=== PATIENT | male | born 1975 | race Caucasian/White ===

== ENCOUNTER 2016-08-13 10:05 | Outpatient (CLI) | payer OTHER ==
[2016-08-13 10:42] LABS: ALT (SGPT) 44 U/L (0-55); AST (SGOT) 32 U/L (5-34); Albumin 4.5 g/dL (3.5-5.0); Alkaline Phosphatase 45 U/L (40-150); Amylase 72 U/L (25-125); Anion Gap 14 mmol/L (10-20); BUN (Urea Nitrogen) 16 mg/dL (8.9-20.6); Bilirubin, Total 0.6 mg/dL (0.2-1.2); Calc. Creatinine Clearance 0 mL/min (70-130); Calcium 9.4 mg/dL (7.8-10.44); Carbon Dioxide 26 mmol/L (22-29); Cardiac Risk 8.5 (Less than 4.5); Chloride 102 mmol/L (98-107); Cholesterol 255 mg/dL (< 200 Desired); Estimated GFR-MDRD 63; Globulin 2.4 g/dL (2.4-3.5); Glucose 93 mg/dL (70-105); HDL Cholesterol 30 mg/dL (>60 Neg Risk); LDL Cholesterol, Calculated 161 mg/dL; Lipase 46 U/L (8-78); Potassium 4.8 mmol/L (3.5-5.1); Protein, Total 6.9 g/dL (6.0-8.3); Sodium 137 mmol/L (136-145); Triglycerides 319 mg/dL (Less than 150)
[2016-08-13 10:48] LABS: #Basophils 0.1 thou/uL (0.0-0.2); #Eosinphils 0.1 thou/uL (0.0-0.7); #Lymphocytes 1.8 thou/uL (1.20-3.40); #Monocytes 0.9 thou/uL (0.11-0.59); #Neutrophils 5.3 thou/uL (1.40-6.50); %Eosinophils 1.5 % (0.0-10.0); %Lymphocytes 22.1 % (21.0-51.0); %Monocytes 10.5 % (0.0-10.0); Mean Corpuscular HGB CONC 32.8 g/dL (32.0-36.0); Mean Corpuscular Volume 94.6 fl (80.0-94.0); Mean Platelet Volume 9.2 fL (7.4-10.4); Platelet Count 197 thou/uL (130-400); Red Blood Cell (RBC) Count 5.47 mill/uL (4.70-6.10); White Blood Cell (WBC) Count 8.2 thou/uL (4.8-10.8)
== END 2016-08-13 10:06 | disposition home or self-care (01) ==
LOC: MADLABBHPM 10:05
PROVIDERS: ATTEND Family Medicine
DX: E78.5 Hyperlipidemia, unspecified (principal); I10 Essential (primary) hypertension
CPT/HCPCS: 36415; 80053; 80061; 82150; 83690; 84443; 85025

== ENCOUNTER 2019-11-27 10:12 | Outpatient (CLI) | payer OTHER ==
--- NOTE | 2019-11-27 11:17 | ULT ---
EXAM: US Thyroid STANDARD PROVIDED CLINICAL HISTORY: Enlarged thyroid gland. Reported left thyroid mass on prior imaging study. COMPARISON: None FINDINGS: The right lobe of thyroid gland measures 4.4 cm x 2.3 cm x 2.1 cm with the left lobe measuring 4.9 cm x 2.6 cm x 2.6 cm. The thyroid isthmus is thickened measuring 0.8 cm. No thyroid nodules are seen in the right lobe of the thyroid gland. A circumscribed hypoechoic mass is seen in the midportion left lobe of thyroid gland which measures 2 .9 cm x 2.6 cm x 2.3 cm. No additional left thyroid nodules are seen. IMPRESSION: 1. TI-RADS level 4, moderately suspicious nodule left lobe of the thyroid gland. ACR guidelines recom mend fine-needle aspiration. 2. Generalized mild enlargement of the thyroid gland.
== END 2019-11-27 10:13 | disposition home or self-care (01) ==
LOC: MADULT 10:12
PROVIDERS: ATTEND Family Medicine
DX: E04.9 Nontoxic goiter, unspecified (principal)
CPT/HCPCS: 76536

== ENCOUNTER 2020-12-20 18:12 | Emergency (ER) | payer SELFPAY ==
[~2020-12-20 18:12] MED LIST: Iopamidol 370 76% 100 ML VIAL ONE
[2020-12-20 19:02] LABS: Bilirubin Negative (Negative); Blood, Urine Trace (Negative); Clarity Clear (Clear); Glucose, Urine (Dipstick) Negative (Negative); Ketone, Urine Negative (Negative); Leukocyte Negative (Negative); Nitrite Negative (Negative); Protein, Urine (Dipstick) Negative (Neg-Trace); Urobilinogen 0.2 mg/dL (Less than 2); pH, Urine 5.5 (5.0-9.0)
[2020-12-20 19:05] LABS: Bacteria/HPF Rare-Few HPF (None Seen); RBC/HPF 0-3 HPF (0-3); Squamous Epithelial 0-3 HPF (0-3); WBC/HPF None Seen HPF (0-3)
[2020-12-20 19:10] LABS: #Basophils 0.1 thou/uL (0.0-0.2); #Lymphocytes 0.8 thou/uL (1.20-3.40); #Monocytes 0.9 thou/uL (0.11-0.59); #Neutrophils 12.8 thou/uL (1.40-6.50); %Basophils 0.4 % (0.0-1.0); %Eosinophils 0.3 % (0.0-10.0); %Lymphocytes 5.4 % (21.0-51.0); %Monocytes 5.9 % (0.0-10.0); Hemoglobin 16.3 g/dL (14.0-18.0); Mean Corpuscular HGB CONC 32.6 g/dL (32.0-36.0); Mean Corpuscular Hemoglobin 31.4 pg (27.0-31.0); Mean Corpuscular Volume 96.3 fL (78.0-98.0); Mean Platelet Volume 9.1 fL (7.4-10.4); Platelet Count 167 thou/uL (130-400); RBC Distribution Width 12.3 % (11.5-14.5); Red Blood Cell (RBC) Count 5.18 mill/uL (4.70-6.10); White Blood Cell (WBC) Count 14.5 thou/uL (4.8-10.8)
[2020-12-20] MEDS ORDERED: Ketorolac Tromethamine 30 MG/ML VIAL ONE (19:13)
[2020-12-20] MEDS ORDERED: Ondansetron PF 4 MG/2 ML Vial ONE (19:13)
[2020-12-20] MEDS ORDERED: Sodium Chloride 0.9% 1,000 ML ONE ×2 (19:13→20:27)
[2020-12-20 19:21] LABS: Amphetamine Not Detected (NotDetected); Barbiturates Screen Not Detected (NotDetected); Benzodiazepine Screen Not Detected (NotDetected); Cocaine Metabolite Screen Not Detected (NotDetected); Medtox Control Line Valid? VALID (VALID); Methadone Not Detected (NotDetected); Methamphetamine Not Detected (NotDetected); Opiate Screen Not Detected (NotDetected); Oxycodone Screen Not Detected (NotDetected); Phencyclidine (PCP) Not Detected (NotDetected); THC/Cannabinoid Screen Not Detected (NotDetected); Tricyclic Screen Not Detected (NotDetected)
[2020-12-20 19:27] LABS: ALT (SGPT) 44 U/L (8-55); AST (SGOT) 26 U/L (5-34); Albumin 4.5 g/dL (3.5-5.0); Alkaline Phosphatase 62 U/L (40-110); Anion Gap 17 mmol/L (10-20); BUN (Urea Nitrogen) 9 mg/dL (8.9-20.6); Bilirubin, Total 0.8 mg/dL (0.2-1.2); CK (CPK) 88 U/L (30-200); CRP (Inflammatory) 6.82 mg/dL (= or < 0.5); Calc. Creatinine Clearance 0 mL/min (70-130); Calcium 9.3 mg/dL (7.8-10.44); Carbon Dioxide 22 mmol/L (22-29); Chloride 100 mmol/L (98-107); Globulin 2.8 g/dL (2.4-3.5); Glucose 124 mg/dL (70-105); Potassium 4.4 mmol/L (3.5-5.1); Protein, Total 7.3 g/dL (6.0-8.3); Sodium 135 mmol/L (136-145)
[2020-12-20] MEDS ORDERED: Sodium Chloride 0.9% 100 ML ONE (20:27)
[2020-12-20] MEDS ORDERED: Piperacillin/Tazobactam 4.5 GM VIAL ONE (20:27)
== END 2020-12-20 21:52 | disposition home or self-care (01) ==
LOC: MADERS 18:12
DX: K52.9 Noninfective gastroenteritis and colitis, unspecified (principal); E86.0 Dehydration; E78.5 Hyperlipidemia, unspecified; I10 Essential (primary) hypertension; Z79.899 Other long term (current) drug therapy
CPT/HCPCS: 74177; 80053; 80306; 81003; 81015; 82150; 82550; 83690; 85025; 86140; 96365; 96375; J1885; J2405; J2543; J3490; J7050; Q9967

== ENCOUNTER 2022-07-13 11:03 | Outpatient (CLI) | payer BC | END 2022-07-13 11:04 | disposition home or self-care (01) | LOC: MADCT 11:03 | PROVIDERS: ATTEND Internal Medicine | DX: R59.0 Localized enlarged lymph nodes (principal); E01.0 Iodine-deficiency related diffuse (endemic) goiter | CPT/HCPCS: 70491; Q9967 ==

== ENCOUNTER 2025-01-11 17:05 | Emergency (ER) | payer BC | END 2025-01-11 17:47 | disposition home or self-care (01) | LOC: MADERS 17:05 | DX: K08.89 Other specified disorders of teeth and supporting structures (principal); I10 Essential (primary) hypertension; F17.210 Nicotine dependence, cigarettes, uncomplicated | CPT/HCPCS: 64400; J0665 ==